=== PATIENT | female | born 2000 | race Caucasian/White ===

== ENCOUNTER 2019-12-02 23:11 | Emergency (ER) | payer BC ==
[~2019-12-02] VITALS: Ht 162.6 cm; Wt 58.1 kg
[2019-12-02 23:14] VITALS: BP 113/77
--- NOTE | 2019-12-02 23:34 | NUR ---
PROVIDER AT BEDSIDE.
[2019-12-02] MEDS ORDERED: BIRTH CONTROL PILLS (23:46)
[2019-12-02] MEDS ORDERED: LORazepam 1MG TABLET ONE (23:48)
--- NOTE | 2019-12-02 23:51 | NUR ---
MEDICATED PER MAR.
[2019-12-03] MEDS ORDERED: LORazepam 1MG TABLET PO ONE
== END 2019-12-03 00:47 | disposition home or self-care (01) ==
LOC: ED 12-03 00:34
DX: F41.1 Generalized anxiety disorder (principal); J45.909 Unspecified asthma, uncomplicated
CPT/HCPCS: 99283

== ENCOUNTER 2020-07-02 11:51 | Emergency (ER) | payer BC ==
[~2020-07-02] VITALS: Ht 165.1 cm; Wt 55.4 kg
[~2020-07-02 11:51] MED LIST: BIRTH CONTROL PILLS
[2020-07-02] MEDS ORDERED: LORazepam 1MG TABLET ONE (12:15)
--- NOTE | 2020-07-02 12:23 | NUR ---
pt in room. states she feels like her heart is racing at times. "i feel better now" vss, hr is sinus now
[2020-07-02 12:25] VITALS: BP 104/64
[2020-07-02] MEDS ORDERED: LORazepam 1MG TABLET PO ONE (12:30)
--- NOTE | 2020-07-02 12:59 | NUR ---
pt states she is feeling alot better. walked out self with steady gait. if s&s worsen return to er
== END 2020-07-02 13:13 | disposition home or self-care (01) ==
LOC: ED 12:12
DX: F41.1 Generalized anxiety disorder (principal); R00.2 Palpitations
CPT/HCPCS: 93005; 99283